=== PATIENT | male | born 1995 | race Caucasian/White ===

== ENCOUNTER 2017-05-28 14:41 | Emergency (ER) | payer OTHER, SELFPAY ==
[2017-05-28 14:42] VITALS: BP 177/102; PULSE 126; RESP 18; TEMP 36.8; O2SAT 97; BMI 39.0
--- NOTE | 2017-05-28 14:55 | NURSING ---
[facility] SHE WILL BE OVER SOON
--- NOTE | 2017-05-28 15:02 | RAD_ITS ---
STUDY: X-RAY - RIGHT HAND REASON FOR EXAM: Male, 21 years old. Trauma. Pain. Crush injury to the index finger TECHNIQUE: 3 view(s) of the hand. COMPARISON: None. FINDINGS: Normal radiocarpal articulation. Normal distal radioulnar joint. Normal visualized carpal bones. Normal carpal articulations Normal carpometacarpal articulation of the thumb. Normal second through fifth carpometacarpal joints. Normal metacarpi. Normal metacarpophalangeal joint of the thumb. Normal interphalangeal joint of the thumb. Normal proximal and distal phalanges of the thumb. Normal metacarpophalangeal joints of the second through fifth fingers. Normal proximal and distal interphalangeal joints of the second through fifth fingers. There is a comminuted fracture at the tip of the distal phalanx of the index. There is missing soft tissue of the tip of the index finger. RAD/Hand Min 3 Views IMPRESSION: There is a comminuted fracture at the tip of the distal phalanx of the index. There is missing soft tissue of the tip of the index finger. Electronically Signed: Jenna Spencer MD at 15:44 EDT Tel , Service support ,
--- NOTE | 2017-05-28 15:03 | NURSING ---
DR DAYDAY MORE
--- NOTE | 2017-05-28 15:14 | ED.RN ---
called [facility] for drug test
[2017-05-28] MEDS: Diphth,Pertuss(Acell),Tet Vac 0.5 ML Vial IM (15:20)
[2017-05-28] MEDS: morphine 8 MG/ML Syringe 6 MG IV (15:37)
--- NOTE | 2017-05-28 15:43 | ED.VISSUMM ---
- ER Visit Summary Date of Service: 05/28/17 Chief Complaint: Right index finger injury History of Present Illness: The patient is a 21 M presenting for evaluation secondary to right index finger injury. Patient was at work, he states that he got his finger stuck in a press at work. Patient states that he has significant pain in the tip of his right index finger, he is right-hand dominant. Patient states that he does not know his last tetanus shot. Physical Examination: Primary survey: Airway is patent, breath sounds equal bilateral, central peripheral pulses 2+ and symmetric, GCS 15 out of 15. Vitals within normal limits. Secondary survey: General: Well-nourished well-developed no acute distress Head: Normocephalic atraumatic Eyes: PERRLA, EOMI ENT: HEENT exam atraumatic Neck: Nontender full range of motion, no step-offs noted Heart: Regular rate and rhythm no murmurs Lungs: Respirations nondistressed, lung sounds clear to auscultation bilaterally, chest nontender, normal chest excursion bilaterally Abdomen: Soft nontender nondistended normal bowel sounds no palpable abdominal masses Back: Nontender no step-offs noted Extremities: Extremity exam unremarkable except for examination of the patient's right upper extremity. There is a partial amputation of the distal phalanx of the right index finger with exposed bone and half of the nail being removed. Normal flexion extension of the finger. There is some active bleeding noted. Skin: Normal color no trauma Neuro: Alert and oriented ?4, GCS 15 out of 15, no lateralizing neurological deficits. Test Results: Hand x-ray per my personal and radiology interpretation shows comminuted fracture of the distal phalanx of the index finger Emergency Department Course and Treatment: Patient presented secondary to a partial amputation of the distal phalanx of his index finger. Patient was medicated with morphine, his tetanus status was updated and he was given Keflex. X-rays showed comminuted fracture. Patient does not have adequate coverage of the tip of his finger, so decision was made for revision amputation. Patient was anesthetized using a digital block. Total of 5 cc of bupivacaine was used and good anesthesia was obtained. Patient was prepped and draped in a sterile fashion. Finger was rondure until adequate coverage could be obtained. Total of 4 simple interrupted 4-0 Ethilon sutures were used to cover the pad of the patient's distal finger. There was good hemostasis. Patient tolerated this well Patient was placed in a bulky dressing and finger splint. Patient will follow-up with orthopedics and [facility]. Patient will be discharged with a course of [place] and Keflex. He was given signs and symptoms for which to return. Disposition: Discharged Impression: 1. Partial amputation of distal phalanx of right index finger 2. Revision amputation by ED physician This note was generated with [employer] dictation software. It may contain incorrect words, spelling, and punctuation that were not noted in review of the chart prior to signing ED Disposition - Plan for ED Patient: Disposition: Home or Assisted Living Chief Complaint: Trauma Diagnosis: Partial traumatic transphalangeal amputation of finger Instructions: ED Laceration Amputation Finger Tip Open Tx Prescriptions: Hydrocodone Bitart/Apap 5-325 [[place] 5/325] 1 tab PO Q4H PRN PRN 3 Days #12 tab PRN Reason: Pain Cephalexin [Keflex] 500 mg PO Q6 #40 cap [facility]errals: [facility]YSIC[facility]] - As soon as possible Koki Portillo DO [STAFF PHYSICIAN] - 3-5 Days
[2017-05-28 15:45] VITALS: BP 151/83; PULSE 127; RESP 16; O2SAT 96
[2017-05-28] MEDS: Bupivacaine Mpf 0.5% 30 ML VIAL INFILT (16:11)
[2017-05-28] MEDS: Cephalexin 250 MG Capsule 500 MG PO (17:53)
[2017-05-28 17:54] VITALS: BP 145/98; PULSE 110; RESP 16; O2SAT 98
== END 2017-05-28 17:55 | disposition home or self-care (01) ==
PROVIDERS: Emergency Provider Emergency Medicine; Family Provider Family Medicine; PCP Family Medicine
DX: S68.620A Partial traumatic transphalangeal amputation of right index finger, initial encounter (principal); W31.9XXA Contact with unspecified machinery, initial encounter; Y93.89 Activity, other specified; Y92.89 Other specified places as the place of occurrence of the external cause; Y99.0 Civilian activity done for income or pay
CPT/HCPCS: 12001; 73130; 90715; 96374; 99285; J7030

== ENCOUNTER 2017-06-09 12:46 | Day surgery (SDC) | payer OTHER, SELFPAY ==
[2017-06-09 13:09] VITALS: BP 113/62; PULSE 92; RESP 18; TEMP 36.7; O2SAT 98; BMI 35.8
[2017-06-09] MEDS: Cefazolin 2 GM in 0.9% Normal Saline 100 ML IV (17:40)
--- NOTE | 2017-06-09 18:11 | PCM.DC.ORTHO ---
Discharge Diet: No Restrictions - follow up in one week for incision check, may change dressing in 3 days Discharge Activity: May Not Drive May shower in (days): 1 Ice area for (Minutes): 20 - Every hour while awake. Weight Bearing Status: Weight bearing as tolerated Keep extremity elevated above heart level: Operative Extremity Call your doctor if your incision/area has: Continuous Slow Oozing, Sudden Increased Bleeding, Increased Pain/ Swelling, Increased Redness, Foul Smelling Discharge Call your doctor if you observe: Fever of 101 or Higher, Coldness, Increased Pain, Numbness or Tingling, Change in Color, Calf discomfort Allergies/Adverse Reactions: Allergies No Known Allergies Allergy (Verified 06/08/17 15:50) Medications to take at Discharge Cephalexin [Keflex] 500 mg PO Q6 #40 cap 05/28/17 Acetaminophen [Tylenol Extra Strength] 500 - 1,000 mg PO Q6H PRN PRN 06/08/17 Ibuprofen 600 mg PO PRN PRN 06/08/17 Primary Care Physician: Arnaldo Irene MD [Primary Care Provider] - Please Follow Up With: Koki Portillo, - [phone]
--- NOTE | 2017-06-09 18:12 | PCM.OPRPT ---
Report of Operation Date of Procedure: 06/09/17 Pre-Operative Diagnosis: right index finger amputation/ imbedded sutures/maceration Post-Operative Diagnosis: same Surgery/Procedure Performed:: right index finger revision amputation, bone debridement, removal of nail matrix, irrigation and debridement Type of Anesthesia:: Local Estimated Blood Loss (mL): none Description of Procedure: Preoperative note Is a 21-year-old male well-known to me in clinic. He was a [employer]. injury where he had an amputation of his right index finger at work. Seen in the office the skin was all macerated and the sutures that were done in the emergency room were embedded into his amputation that was done in the emergency room. Patient was seen in the morning in the clinic and determined to take the decision was made to taken to the operating room for formal debridement and monitoring back of his bone and evaluate for any nail that might be remaining so he does not get a hook nail. Wrist benefits alternatives surgery discussed with patient. Risks including but not limited to blood loss, blood clot, infection, neurovascular injury, failure procedure, loss of life and loss of limb. Patient is aware like proceed with right revision index finger amputation. Operative note Patient seen and examined preoperative holding area. Right index finger was marked. Patient brought to the operating placed supine on the operating table. Sign, anesthesia, and antibiotics were administered. The right index finger was prepped in usual sterile fashion. We removed his previous sutures a tourniquet was placed over his right index finger. Timeout was performed. We then removed the stitches on his initial debridement he had some loose pieces as well as some macerated pieces that were not well healing so these were gently debrided back we palpated the bone the bone was a little bit long as we did from the back with a rongeur as well. We had what we felt was a little bit left of the nail matrix that was on the aspect of the incision with which was gently debrided back as well. We cleaned up the edges we irrigated the incision the amputation with copious nonsterile saline and then we reclosed amputation with 4-0 nylon interrupted stitch stitches with a splint with sterile dressings and a splint on top. Patient had received a local block in the preop holding area and Ativan and the patient was in the operating room did receive antibiotics. The patient was transferred to the recovery room in stable condition there were no complications. Next Postoperative note Follow-up on Wednesday May change dressing in 3 to days at home next Call with increased pain numbness tingling or further issues arise May need for repeat revision amputation in the future if this wound does not heal next Call with concerns Dragon disclaimer This note was generated with [employer] dictation software. It may contain incorrect words, spelling, and punctuation that were not noted in checking the note before signing.
[2017-06-09 18:25] VITALS: BP 155/84; PULSE 92; RESP 16; TEMP 36.7; O2SAT 98
== END 2017-06-09 18:35 | disposition home or self-care (01) ==
LOC: SDC 12:48 → AC 12:49
PROVIDERS: Family Provider Family Medicine; PCP Family Medicine; Visit Provider Orthopaedic Surgery
PROC: (CPT 26236; principal; 2017-06-09 14:25)
DX: S68.110A Complete traumatic metacarpophalangeal amputation of right index finger, initial encounter (principal); F17.200 Nicotine dependence, unspecified, uncomplicated; Z79.2 Long term (current) use of antibiotics; Z79.891 Long term (current) use of opiate analgesic; W31.9XXA Contact with unspecified machinery, initial encounter; Y93.89 Activity, other specified; Y92.89 Other specified places as the place of occurrence of the external cause; Y99.0 Civilian activity done for income or pay
CPT/HCPCS: 26236; J7120